=== PATIENT | male | born 1960 | race Caucasian/White ===

== ENCOUNTER → 2017-06-27 | Day surgery (SDC) | payer OTHER ==
[~2017-06-27] VITALS: Ht 187.9 cm; Wt 108.0 kg
[~2017-06-27] MED LIST: ZESTRIL10 MG PO
--- NOTE | ~2017-06-27 | O ---
[place], [place] OPERATIVE NOTE NAME: TONI ROMERO UNIT #: [id number] ROOM: DOCTOR: JULIANNA MONTES MD BIRTHDATE: [birth year] DOS: 06/27/2017 INDICATION FOR PROCEDURE: A 57-year-old patient who presented with chief complaint of colonic screening. ALLERGIES: BEES VENOM. FAMILY HISTORY: Noncontributory. PAST SURGICAL HISTORY: Left hip. PAST MEDICAL HISTORY: Hypertension. SOCIAL HISTORY: Nonsmoker; however, alcohol consumer 6-pack beer per day, which we have had counseling with him to reduce the amount of daily beer consumption. PROCEDURE: Today's procedure part of investigation is colonoscopy plus biopsy. PREMEDICATION: Versed and propofol. SCOPE: Olympus forward-viewing colonoscope 10L video. REPORT: After putting the patient in left lateral position and application of lubricant to the scope, the scope was introduced. Thereafter, under direct visualization, advanced through the length of colon without difficulty. Base of the cecum explored, appendiceal orifice identified. The ileocecal valve was defined. Scope was gradually withdrawn from ascending, transverse, descending colon back to the sigmoid colon, short segment of nonspecific colitis as above; sigmoid colon was noticed. Biopsies obtained. Photograph was obtained. The patient extubated and tolerated the procedure well. IMPRESSION: Nonspecific segmental colitis, sigmoid colon, status post biopsy. PLAN AND DISCUSSION: High fiber fruit diet. ACTIVITY: Ad yovany. FOLLOWUP: Routinely with you in office, p.r.n. visit with us in GI Clinic. I thank you very much indeed for your kind referral. [place], [place] OPERATIVE NOTE NAME: TONI ROMERO UNIT #: [id number] ROOM: DOCTOR: JULIANNA MONTES MD BIRTHDATE: [birth year] JULIANNA MONTES MD CM:OPRECORD:OPERATIVE NOTE 1311 [id number] FÁTIMA MONTES MD 06/27/17 1442 interface
[2017-06-27 12:00] VITALS: BP 118/72
[2017-06-27 13:10] VITALS: BP 112/69
[2017-06-27 13:21] VITALS: BP 103/67
[2017-06-27 13:35] VITALS: BP 106/77
== END | disposition home or self-care (01) ==
LOC: SDC 06-23 12:30
DX: Z12.11 Encounter for screening for malignant neoplasm of colon (principal); K51.80 Other ulcerative colitis without complications; I10 Essential (primary) hypertension; Z91.030 Bee allergy status; Z82.49 Family history of ischemic heart disease and other diseases of the circulatory system

== ENCOUNTER → 2018-06-23 | Outpatient (CLI) | payer OTHER ==
[2018-06-23 10:25] LABS: ALBUMIN 3.7 gm/dl (3.1-4.5)
[2018-06-23 10:29] LABS: BILIRUBIN, DIRECT 0.1 mg/dL (0.0-0.2); TOTAL PROTEIN 7.5 gm/dL (6.4-8.2)
== END | disposition home or self-care (01) ==
LOC: LAB 09:22
PROVIDERS: Internal Medicine
DX: E78.2 Mixed hyperlipidemia (principal); I10 Essential (primary) hypertension

== ENCOUNTER 2018-10-26 19:01 | Emergency (ER) | payer OTHER ==
[~2018-10-26] VITALS: Ht 187.9 cm; Wt 107.0 kg
[2018-10-26] MEDS ORDERED: CEPHALEXIN500 M1 PO (20:17)
[2018-11-04] MEDS ORDERED: DOXYCYCLINE100 MG PO (10:09)
[2018-11-04] MEDS ORDERED: XARELTO10 MG PO (10:10)
[2018-11-04] MEDS ORDERED: ULTRAM50 MG PO (10:11)
== END 2018-10-26 20:45 | disposition home or self-care (01) ==
LOC: ED 19:01
DX: S90.852A Superficial foreign body, left foot, initial encounter (principal); Z79.899 Other long term (current) drug therapy; Z91.040 Latex allergy status; W27.3XXA Contact with needle (sewing), initial encounter; Y93.89 Activity, other specified; Y92.89 Other specified places as the place of occurrence of the external cause; Y99.8 Other external cause status

== ENCOUNTER → 2018-11-04 | Day surgery (SDC) | payer OTHER ==
[2018-11-02 10:23] LABS: BASO # 0.1 10*3/uL (0.0-0.1); BASO % 0.7 % (0.0-1.0); EOS # 0.2 10*3/uL (0.0-0.4); EOS % 2.5 % (1.0-4.0); HEMATOCRIT 44.6 % (42.0-52.0); HEMOGLOBIN 14.4 g/dl (14.0-18.0); LYMPH # 1.4 10*3/uL (1.3-4.4); LYMPH % 18.8 % (27.0-41.0); MEAN CELL VOLUME 95.7 fl (80.0-94.0); MEAN CORPUSCULAR HGB 30.9 pg (27.0-31.0); MEAN CORPUSCULAR HGB CONC 32.3 g/dl (33.0-37.0); MEAN PLATELET VOLUME 9.2 fl (9.6-12.3); MONO # 0.7 10*3/uL (0.1-1.0); NEUT % 68.6 % (47.0-73.0); PLATELET COUNT AUTOMATED 288 10*3/uL (130-400); RED BLOOD COUNT 4.66 10*6/uL (4.50-5.90); WHITE BLOOD COUNT 7.3 10*3/uL (4.8-10.8)
[2018-11-02 10:59] LABS: BUN 14 mg/dl (7-24); CHLORIDE 101 mmol/L (98-107); SODIUM 137 mmol/L (136-145)
[~2018-11-04] VITALS: Ht 187.9 cm; Wt 107.0 kg
[~2018-11-04] MED LIST changes: +CEPHALEXIN500 M1 PO; +DOXYCYCLINE100 MG PO; +ULTRAM50 MG PO; +XARELTO10 MG PO
--- NOTE | ~2018-11-04 | WRIGHTHP ---
[place], [place] PATIENT HISTORY AND PHYSICAL EXAM NAME: TONI ROMERO [facility] #: [id number] UNIT #: [id number] ROOM: DOCTOR: ARTEMIO ONOFRE DPM BIRTHDATE: [birth year] DOS: 11/04/2018 INDICATION NOTE The patient has stepped on a nail, approximately a week ago. He was seen in the office. He has had updated tetanus and at this point in time, he is set for surgery at [facility] for removal of foreign body in left foot. He is aware of pros, cons, risks, benefits overcorrection, undercorrection, recurrence, infection, worsening. With this in mind, he is set for surgery and understands pros, cons, risks, and benefits. He agreed to site marking, consent and preoperative management. ARTEMIO ONOFRE DPM CM:HISPHYS:PATIENT HISTORY AND PHYSICAL EXAMINATION 1036 1110 ARTEMIO ONOFRE DPM 11/04/18 1322 interface
--- NOTE | ~2018-11-04 | WRIGHTHP ---
[place], [place] PATIENT HISTORY AND PHYSICAL EXAM NAME: TONI ROMERO [facility] #: [id number] UNIT #: [id number] ROOM: DOCTOR: ARTEMIO ONOFRE DPM BIRTHDATE: [birth year] DOS: 11/04/2018 LOWER EXTREMITY PHYSICAL EXAM: VASCULAR: Intact pedal pulses 2/4 DP and PT. Good cap refill time. NEUROLOGICAL: He has intact epicritic sensation of the left lower extremity. DERMATOLOGICAL: He has a puncture site edges wound of his left lower extremity. No open wounds. MUSCULOSKELETAL: Pain to palpitation with the fifth metatarsal. Orthopedic exam was performed. ARTEMIO ONOFRE DPM CM:HISPHYS:PATIENT HISTORY AND PHYSICAL EXAMINATION 1036 1111 ARTEMIO ONOFRE DPM 11/19/18 1441 interface
--- NOTE | ~2018-11-04 | O ---
[place], [place] OPERATIVE NOTE NAME: [facility] [id number] UNIT #: [id number] ROOM: DOCTOR: JEMIMA BERMUDEZARTEMIO BIRTHDATE: [birth year] DOS: 11/04/2018 SURGEON: Dr. Onofre. ASSISTANTS: 1. Dr. Tommy Red. He is a fellow. 2. Toni Barber, PGY3. PREOPERATIVE DIAGNOSIS: Painful foreign body, left deep in the soft tissues and muscles of the left foot. POSTOPERATIVE DIAGNOSIS: Painful foreign body, left deep in the soft tissues and muscles of the left foot. PROCEDURE: Removal of painful foreign body deep soft tissues and muscles of the left foot. DESCRIPTION OF PROCEDURE: The patient was brought to OR, placed on the OR table. Anesthesia was achieved. Once the anaesthesia was achieved, the left leg were prepped and draped in usual sterile fashion. Appropriate time-out was performed, everybody in the room concurred. Under the fluoroscopy guidance, an incision was made over the lateral aspect of the metatarsal. At this time, it was deepened in the same plane using sharp and blunt dissection, avoiding neurovascular structures. This soft foreign body was contained, triangulated with the fluoroscopy and noted to be in the soft tissues in the muscles of the tendon and deep tissues of the left foot. This was excised and removed in total using rongeurs from the deep soft tissues. I removed ____ deep tissue was closed with 0 Vicryl, skin using 2-0 nylon. He was anesthetized with 30 mL 0.5% Marcaine about the surgical site. Surgical wounds were dressed with Betadine-soaked Adaptic, 4 x 4, Gale in a sterile compressive fashion. He tolerated the procedure and anesthesia well and left the OR with vital signs stable and vascular status intact. ARTEMIO ONOFRE DPM CM:OPRECORD:OPERATIVE NOTE 1036 1112 ARTEMIO ONOFRE DPM 11/04/18 1504 interface
[2018-11-04 09:00] VITALS: BP 114/76
[2018-11-04 10:10] VITALS: BP 103/67
[2018-11-04 10:25] VITALS: BP 112/70
[2018-11-04 10:40] VITALS: BP 115/77
== END | disposition home or self-care (01) ==
LOC: SDC 11-02 14:45
PROVIDERS: Podiatrist
DX: M79.5 Residual foreign body in soft tissue (principal); I10 Essential (primary) hypertension; E78.5 Hyperlipidemia, unspecified; E66.9 Obesity, unspecified; Z68.30 Body mass index [BMI] 30.0-30.9, adult; Z98.890 Other specified postprocedural states; Z79.899 Other long term (current) drug therapy; Z82.49 Family history of ischemic heart disease and other diseases of the circulatory system

== ENCOUNTER → 2020-02-13 | Outpatient (CLI) | payer OTHER | END | disposition home or self-care (01) | LOC: COVID19 11:23 | PROVIDERS: ATTEND Internal Medicine | DX: U07.1 COVID-19 (principal) ==

== ENCOUNTER 2021-12-11 10:48 | Emergency (ER) | payer OTHER ==
[~2021-12-11] VITALS: Wt 106.1 kg
[2021-12-11 14:08] LABS: BASO # 0.1 10*3/uL (0.0-0.1); BASO % 0.6 % (0.0-1.0); EOS # 0.1 10*3/uL (0.0-0.4); EOS % 0.6 % (1.0-4.0); HEMATOCRIT 41.9 % (42.0-52.0); LYMPH # 1.1 10*3/uL (1.3-4.4); LYMPH % 12.6 % (27.0-41.0); MEAN CELL VOLUME 94.8 fl (80.0-94.0); MEAN CORPUSCULAR HGB CONC 32.7 g/dl (33.0-37.0); MEAN PLATELET VOLUME 9.2 fl (9.6-12.3); MONO # 0.7 10*3/uL (0.1-1.0); MONO % 8.2 % (3.0-9.0); NEUT # 6.6 10*3/uL (2.3-7.9); NEUT % 77.5 % (47.0-73.0); PLATELET COUNT AUTOMATED 206 10*3/uL (130-400); RED BLOOD COUNT 4.42 10*6/uL (4.50-5.90); WHITE BLOOD COUNT 8.5 10*3/uL (4.8-10.8)
[2021-12-11 14:24] LABS: ALKALINE PHOSPHATASE 54 U/L (45-117); BUN 11 mg/dl (7-24); CHLORIDE 105 mmol/L (98-107); CREATININE 0.98 mg/dL (0.70-1.30); POTASSIUM 3.6 mmol/L (3.5-5.1); SGOT/AST 19 IU/L (3-35); SGPT/ALT 31 U/L (12-78); SODIUM 138 mmol/L (136-145); TOTAL PROTEIN 7.5 gm/dL (6.4-8.2)
[2021-12-11] MEDS ORDERED: SEPTDS PO (16:52)
[2021-12-11] MEDS ORDERED: IBUPROFEN600 MG PO (16:52)
== END 2021-12-11 17:26 | disposition home or self-care (01) ==
LOC: ED 10:48
PROVIDERS: Physician Assistant
DX: L03.115 Cellulitis of right lower limb (principal); Z79.899 Other long term (current) drug therapy

== ENCOUNTER → 2023-10-29 | Outpatient (CLI) | payer OTHER ==
[~2023-10-29] MED LIST changes: +IBUPROFEN600 MG PO; +SEPTDS PO
== END | disposition home or self-care (01) ==
LOC: ORTHO 09:42
PROVIDERS: ATTEND Orthopaedic Surgery
DX: M19.031 Primary osteoarthritis, right wrist (principal)

== ENCOUNTER 2024-02-07 11:57 | Emergency (ER) | payer OTHER ==
[~2024-02-07] VITALS: Ht 187.9 cm; Wt 115.3 kg
[2024-02-07] MEDS ORDERED: Motrin,Rufen800 MG PO (13:09)
[2024-02-07] MEDS ORDERED: PREDNISONE20 M1 PO (13:09)
== END 2024-02-07 15:57 | disposition home or self-care (01) ==
LOC: ED 11:57
DX: M93.1 Kienbock's disease of adults (principal); M25.531 Pain in right wrist; I10 Essential (primary) hypertension; E78.00 Pure hypercholesterolemia, unspecified; Z98.890 Other specified postprocedural states